=== PATIENT | male | born 1950 | race Caucasian/White ===

== ENCOUNTER 2018-03-20 14:07 | Emergency (ER) | payer MEDICARE, BC ==
--- NOTE | 2018-03-20 16:56 | RAD ---
THREE VIEWS OF THE LEFT ANKLE: 03/20/18 COMPARISON: None. HISTORY: Left ankle pain after fall yesterday. FINDINGS: Three views of the left ankle shows no evidence of acute fracture or dislocation. Moderate diffuse so ft tissue swelling is seen. There are degenerative changes in the tibiotalar joint. IMPRESSION: Moderate degenerative changes in the left ankle without acute osseous abnormality. POS: [facility]
--- NOTE | 2018-03-20 16:57 | RAD ---
TWO VIEWS LEFT HIP: 03/20/18 COMPARISON: None. HISTORY: Fall yesterday with left hip pain. FINDINGS: Two views of the left hip shows no evidence of acute fracture or dislocation. Mild degenerative chapa es are seen. No focal soft tissue swelling is present. IMPRESSION: Mild left hip osteoarthritis without acute osseous abnormality. POS: [facility]
== END 2018-03-20 16:16 | disposition home or self-care (01) ==
LOC: NAV ERS 14:07
DX: S93.402A Sprain of unspecified ligament of left ankle, initial encounter (principal); S70.02XA Contusion of left hip, initial encounter; I10 Essential (primary) hypertension; X50.1XXA Overexertion from prolonged static or awkward postures, initial encounter